=== PATIENT | male | born 1995 ===

== ENCOUNTER 2017-06-25 13:11 | Emergency (ER) | payer MEDICAID, OTHER ==
[2017-06-25 14:31] VITALS: BP 140/96; PULSE 99; RESP 20; TEMP 98.5; O2SAT 100
--- NOTE | 2017-06-25 16:05 | C.PDOC ---
History Of Present Illness 22 y/o male presents to the ER complaining of nasal congestion which has been present for the past 2 years. Patient states that he started using Oxymetazoline HCI two years ago, he uses it everyday, multiple times a day. Patient notes that he has to use the nasal spray because without it he has persistent nasal congetsion. He has seen his PCP who gave him an alternate nasal sprays which he reports "it doesnt work." Patient went to the ENT, and he was told, " there is nothing wrong." He has been experiencing occasional epistaxis. Patient admits that he has not not been taking his medications for HTN because his insurance changed. Denies having CP, SOB, syncope, headache and dizziness. Time Seen by Provider: 06/25/17 13:26 Chief Complaint (Nursing): Cough, Cold, Congestion History Per: Patient History/Exam Limitations: no limitations Onset/Duration Of Symptoms: Days Current Symptoms Are (Timing): Still Present Severity: Moderate Past Medical History Reviewed: Historical Data, Nursing Documentation, Vital Signs Vital Signs: Last Vital Signs Temp 98.5 F 06/25/17 14:30 Pulse 99 H 06/25/17 14:30 Resp 20 06/25/17 14:30 BP 140/96 H 06/25/17 14:30 Pulse Ox 100 06/25/17 16:13 - Medical History PMH: HTN (NOT ON MEDICATION IN 5MONTHS) Surgical History: No Surg Hx Family History: States: No Known Family Hx - Social History Hx Alcohol Use: No Hx Substance Use: No - Immunization History Hx Tetanus Toxoid Vaccination: No Hx Influenza Vaccination: No Hx Pneumococcal Vaccination: No Review Of Systems Except As Marked, All Systems Reviewed And Found Negative. Constitutional: Negative for: Fever, Chills ENT: Positive for: Nose Congestion Cardiovascular: Negative for: Chest Pain Respiratory: Negative for: Shortness of Breath Neurological: Negative for: Dizziness Physical Exam - Physical Exam Appears: Non-toxic, No Acute Distress Skin: Normal Color, Warm, Dry Head: Atraumatic, Normacephalic Eye(s): bilateral: Normal Inspection, EOMI Ear(s): Bilateral: Normal Nose: No Epistaxis, No Septal Hematoma, Other (nasal congestion with swelling and erythema to nasal canal) Oral Mucosa: Moist Tongue: Normal Appearing Throat: Normal, No Erythema, No Exudate Neck: Normal ROM, Supple Lymphatic: Normal Exam Chest: Symmetrical Cardiovascular: Rhythm Regular Respiratory: Normal Breath Sounds, No Rales, No Rhonchi, No Wheezing Neurological/Psych: Oriented x3, Normal Speech ED Course And Treatment O2 Sat by Pulse Oximetry: 100 (RA) Pulse Ox Interpretation: Normal Progress Note: Patient has been given Trandate PO based on his recollection of the medication he takes. Case discussed with who reccommended that patient be given a taper dose of Prednisone starting at 60 mg, Bactrim, and Flonase and f/u in his office. Pt pharmacy was called, correct medication was identified and re prescribed. Patient has been informed about the risk of untreated HTN. Pt verbalized undernstanding. Also discussed the risk of continueing to use Afrin associated dependence. Pt verbalized understanding. Patient has been discharged and instructed strict follow up with PMD and ENT. Disposition - Disposition Referrals: [facility] [Outside] Bhaskar Abarca MD [Staff Provider] - Disposition: HOME/ ROUTINE Disposition Time: 14:00 Condition: STABLE Additional Instructions: STOP the nasal spray your are currently using. Fill and start the prescriptions. Follow up with Dr Abarca as soon as possible. Prescriptions: Fluticasone Nasal [Flonase] 1 actuation NS DAILY #1 spr Losartan/Hydrochlorothiazide [Losartan-Hctz 100-25 mg Tab] 1 each PO DAILY #14 tablet Metoprolol Tartrate [Lopressor] 25 mg PO BID #28 tab Prednisone 10 mg PO DAILY 10 Days tab.ds.pk Sulfamethoxazole/Trimethoprim [Bactrim DS 800 mg-160 mg] 1 tab PO BID #14 tab Instructions: Cough, Runny Nose, and the Common Cold (DC) Forms: [employer] (Yoruba) - Clinical Impression Clinical Impression: Rhinitis medicamentosa, Chronic hypertension - PA / JUNIOR BUSINESS ANALYST / Resident Statement MD/DO has reviewed & agrees with the documentation as recorded. - Scribe Statement The provider has reviewed the documentation as recorded by the Eladio Lane Provider Attestation All medical record entries made by the Andreeibcarrington were at my direction and personally dictated by me. I have reviewed the chart and agree that the record accurately reflects my personal performance of the history, physical exam, medical decision making, and the department course for this patient. I have also personally directed, reviewed, and agree with the discharge instructions and disposition.
== END 2017-06-25 14:36 | disposition home or self-care (01) ==
LOC: C.ER 13:11 → EDBD 13:11 → C.ER 14:36
DX: J31.0 Chronic rhinitis (principal); I10 Essential (primary) hypertension